=== PATIENT | male | born 1965 | race African-American/Black ===

== ENCOUNTER 2019-11-07 17:53 | Emergency (ER) | payer SELFPAY ==
[~2019-11-07] VITALS: Ht 185.4 cm; Wt 102.1 kg
[2019-11-07 17:55] VITALS: BP 150/70
--- NOTE | 2019-11-07 17:57 | NUR ---
PT REFUSED BLOOD DRAW AND TO PROVIDE URINE SAMPLE. NOTIFIED.
--- NOTE | 2019-11-07 18:00 | NUR ---
CALLED [facility] FOR ASSISTANCE; THE PATIENT DOES NOT FOLLOW SIMPLE COMMANDS
--- NOTE | 2019-11-07 18:00 | NUR ---
THE PATIENT INSISTS THAT WE CALL THE PAR[facility] HE KEEPS STAYING AT THE NURSES STATION - CALLED [facility] FOR ASSISTANCE
--- NOTE | 2019-11-07 18:19 | NUR ---
PT REFUSING TO RETURN TO BED, AND REFUSING TO LEAVE.
--- NOTE | 2019-11-07 19:37 | NUR ---
PT LEFT ER. ERMD AWARE.
== END 2019-11-07 19:37 | disposition home or self-care (01) ==
LOC: ER 17:56
DX: F41.9 Anxiety disorder, unspecified (principal); Z53.21 Procedure and treatment not carried out due to patient leaving prior to being seen by health care provider